=== PATIENT | female | born 1935 | race Caucasian/White ===

== ENCOUNTER 2022-09-18 11:03 | Emergency (ER) | payer MEDICARE, BC ==
[2022-09-18] MEDS ORDERED: Bacitracin Oint 1 GM U/D Packet TOP ONE (12:24)
[2022-09-18] MEDS ORDERED: Lidocaine 1% with EPINEPHrine 1:100,000 50 ML MDV INFILT ONE (12:24)
== END 2022-09-18 13:57 | disposition home or self-care (01) ==
LOC: JP.ED 11:03
DX: S51.012A Laceration without foreign body of left elbow, initial encounter (principal); E11.9 Type 2 diabetes mellitus without complications; I25.2 Old myocardial infarction; W18.30XA Fall on same level, unspecified, initial encounter; Z88.8 Allergy status to other drugs, medicaments and biological substances; Z88.2 Allergy status to sulfonamides; Z88.5 Allergy status to narcotic agent; Z79.01 Long term (current) use of anticoagulants; Z79.84 Long term (current) use of oral hypoglycemic drugs; Z79.899 Other long term (current) drug therapy; Z95.5 Presence of coronary angioplasty implant and graft; Z86.73 Personal history of transient ischemic attack (TIA), and cerebral infarction without residual deficits
CPT/HCPCS: 12001; 99282; 99283